=== PATIENT | female | born 1950 | race Caucasian/White ===

== ENCOUNTER → 2017-12-11 12:23 | Outpatient (CLI) | payer MEDICARE, OTHER ==
[2011-12-25 17:15] VITALS: BMI 36.5
== END | disposition home or self-care (01) ==
LOC: D.MRI 12:23
DX: M25.562 Pain in left knee (principal)

== ENCOUNTER 2018-01-04 06:32 | Day surgery (SDC) | payer MEDICARE, OTHER ==
[~2018-01-04] VITALS: Ht 170.2 cm; Wt 92.1 kg
--- NOTE | ~2018-01-04 | OP ---
PATIENT NAME: GRIS HASTINGS MEDICAL RECORD: [id number] :50 LOCATION:[facility] ADMISSION DATE: SURGEON: TONI MORALES MD DATE OF OPERATION: 01/04/2018 PREOPERATIVE DIAGNOSES: 1. Medial meniscus tear of the right knee. 1. Lateral meniscus tear of the right knee. PROCEDURES: 1. Arthroscopic partial medial meniscectomy. 2. Arthroscopic partial lateral meniscectomy. SURGEON: Toni Morales MD ANESTHESIA: General. INTRAOPERATIVE COMPLICATIONS: None. SUMMARY OF PATHOLOGIC FINDINGS: Consistent with the preoperative MRI, the patient had tears of both medial and lateral meniscus that required debridement. OPERATIVE SUMMARY IN DETAIL: After obtaining the appropriate preoperative orthopedic surgery consent as well as anesthetic consultation, evaluation, and clearance, the patient was brought to the operating room and placed on the operating table in the supine position. After general laryngeal mask was administered, tourniquet was placed about the proximal aspect of the right lower extremity. The right lower extremity was then prepped and draped in routine sterile fashion. The leg was elevated, exsanguinated, and the tourniquet was inflated to 350 mmHg. Routine inferolateral portal was established followed by superomedial portal and inferomedial portal. Diagnostic arthroscopy did reveal the patient to have both a complex tear of the posterior horn of medial meniscus as well as a complex tear of the posterior horn of lateral meniscus. Attention was first turned to the medial meniscus. Combination of 3.5 full radius resector in conjunction with a meniscotome was utilized to debride the medial meniscus back to stable meniscal elements. The patient did have mild chondromalacia of the medial compartment. One area of chondral flap was taken down. It was not full thickness, measured less than 2 mm. Having completed this, the knee was placed in a [id number]-bdjj position, and in the [id number]-ek-[id number] position, the lateral meniscus tear was quite a bit more significant in the medial meniscus tear as it went straight back to the popliteal fossa. Both horns on medial and lateral aspect of popliteal fossa were debrided back with minimal residual on the posteromedial aspect of the lateral meniscus and with good residual on the posterolateral aspect lateral to the popliteal hiatus. Having completed the entire subtotal meniscectomy on the lateral side, the knee was insufflated with 80 cc of Depo-Medrol with 30 cc of 0.25% Marcaine plain. Arthroscopy portals were closed in routine interrupted fashion. Sterile dressings were applied. Tourniquet was deflated. The patient was awakened and taken to the recovery room in stable condition. All final needle and sponge counts were correct. TRANSINT:[id number] Voice Confirmation ID: [id number] DOCUMENT ID: [id number] OPERATIVE REPORT [id number] GRIS HASTINGS MD, TONI FLYNN at 1312 CC: [id number] DICTATION DATE: 01/08/18 1402 CORRECTIONS SPECIALIST: 01/08/18 1543 [facility] [place] 01/04/18 [id number] [place] [address]
[~2018-01-04 06:32] MED LIST: PRINZIDE 20/12.1 TA1 PO
[2018-01-04 07:00] LABS: HEMATOCRIT 35.8 % (36.0-48.0); HEMOGLOBIN 11.6 g/dL (12-16); MCH 28.1 pg (26.0-34.0); MCHC 32.4 g/dL (31.0-37.0); MCV 86.7 fL (80.0-100.0); MEAN PLATELET VOLUME 9.8 fL (7.4-10.4); RBC 4.13 10x6/uL (4.00-5.40); RDW 13.3 % (11.5-14.5); WBC 5.1 10x3/uL (4.8-10.8)
[2018-01-04 07:20] LABS: ANION GAP 12.6 mmol/L (8-16); CARBON DIOXIDE 28.6 mmol/L (21.0-32.0); CREATININE - SERUM 0.9 mg/dL (0.6-1.3); POTASSIUM - SERUM 4.2 mmol/L (3.5-5.1)
[2018-01-04 07:34] VITALS: BP 156/66; Ht 170.2 cm; Wt 92.1 kg
== END 2018-01-04 12:05 | disposition home or self-care (01) ==
LOC: D.OPS 06:32 → D.PAN 14:00 → D.OPS 15:45
PROVIDERS: Anesthesiology
DX: S83.241A Other tear of medial meniscus, current injury, right knee, initial encounter (principal); S83.281A Other tear of lateral meniscus, current injury, right knee, initial encounter; Z01.812 Encounter for preprocedural laboratory examination

== ENCOUNTER → 2018-02-03 17:32 | Outpatient (CLI) | payer MEDICARE, OTHER ==
[2018-01-04 07:34] VITALS: BMI 31.8
== END | disposition home or self-care (01) ==
LOC: D.LABREF 17:32
DX: M19.011 Primary osteoarthritis, right shoulder (principal); Z11.8 Encounter for screening for other infectious and parasitic diseases

== ENCOUNTER 2018-03-11 05:00 | Inpatient (IN) | payer MEDICARE, OTHER ==
[2018-03-09 08:45] LABS: ANION GAP 13.4 mmol/L (8-16); CARBON DIOXIDE 28.2 mmol/L (21.0-32.0); POTASSIUM - SERUM 3.6 mmol/L (3.5-5.1)
[2018-03-09 08:47] LABS: APTT 26.9 SECONDS (22.8-39.4); BASOPHILS 0.3 % (0-2); EOSINOPHILS 0 % (0-7); HEMATOCRIT 37.7 % (36.0-48.0); HEMOGLOBIN 12.3 g/dL (12-16); IMMATURE GRANULOCYTES 0.2 % (0-5); INR 0.93 (0.85-1.17); MCH 28.5 pg (26.0-34.0); MCHC 32.6 g/dL (31.0-37.0); MCV 87.5 fL (80.0-100.0); MEAN PLATELET VOLUME 10.1 fL (7.4-10.4); MONOCYTES 6.6 % (2-11); NEUTROPHILS 69.9 % (40-80); RBC 4.31 10x6/uL (4.00-5.40); RDW 13.3 % (11.5-14.5); WBC 6.3 10x3/uL (4.8-10.8)
[2018-03-09 08:50] LABS: PLATELET COUNT 188 10x3/uL (130-400)
[2018-03-09 09:17] LABS: APPEARANCE CLEAR (CLEAR); BACTERIA FEW /hpf (NONE SEEN); BILIRUBIN NEGATIVE (NEGATIVE); COLOR YELLOW (YELLOW); EPITHELIAL CELLS RARE /hpf (0-5); GLUCOSE NEGATIVE (NEGATIVE); HYALINE CAST RARE /lpf (NONE SEEN); KETONE NEGATIVE (NEGATIVE); MUCUS <1+ /lpf (NONE SEEN); NITRITE NEGATIVE (NEGATIVE); PROTEIN NEGATIVE (NEGATIVE); UROBILINOGEN NORMAL (NORMAL); WHITE CELLS - URINE RARE /hpf (0-5)
[~2018-03-11] VITALS: Ht 152.4 cm; Wt 75.0 kg
[~2018-03-11 05:00] MED LIST changes: +NEXIUM20 MG PO; +SUPER B COMPLE150 MG PO
[2018-03-11 05:58] VITALS: BP 126/51; BMI 32.2
--- NOTE | 2018-03-11 11:17 | NUR ---
1105 PT AWAKE AND FEEDING SELF FULL LIQUID DIET 1115 BNC 2L TURNED OFF.
[2018-03-11 12:30] VITALS: BP 124/82
--- NOTE | 2018-03-11 13:09 | NUR ---
1235 PT HAS BEEN VERY SLEEPY THE ENTIRE TIME SINCE ARRIVING FROM PACU. SHE WOKE UP TO EAT FULL LQ DIET THEN WENT BACK TO SLEEP. EACH CHECK HER SBP HAS DROPPED. THIS CHECK THE SBP WAS IN THE 80'S. TURNED LR UP TO BOLUS. WATCHED PRESSURE FOR ABOUT 5 MINUTES AND IT CONTINUED TO RUN IN THE 80'S. PT WAKES UP EASILY AND IS ORIENTED X3. HAD PT MOVE ABOUT IN THE STRETCHER. SHE STATED SHE FEELS SEDATED FROM ALL THE MEDICINE SHE GOT PRE-OP. 1240 DR. MORALES HERE AND AWARE OF LOW SBP. DR MORALES REQUESTED A CONSULT FOR DR MATA. 1250 NO GREAT INCREASE IN SBP. CALLED DR. DAVIS WHO IS AT BEDSIDE NOW. B/P CURRENTLY 97/48 HE THOUGHT THAT WAS OK AND HE SAID SHE WAS STABLE TO TRANSFER TO THE FLOOR. [address] MATA. HE IS AWARE OF EVENTS. NO ORDERS RECEIVED. HE IS AWARE THAT PT IS TRANSFERRING TO 2226. 1300 PT WAKES UP EASILY TO VERBAL STIMULI. DSG IS DRY AND INTACT. NO SWELLING AT SITE. ICE PACK HAS BEEN ON SINCE ARRIVAL TO OPS. TAKING ICE PACK OFF FOR 2 HOURS ORDERED. PT REMAINS ON 2L BNC. RESPIRATIONS UNLABORED AND EVEN.
--- NOTE | 2018-03-11 13:30 | NUR ---
1325 VS STABLE. ROOM 2226 READY. REPORT TO BE GIVEN AT BEDSIDE ONCE TRANSFERRED TO ROOM.
[2018-03-11 13:53] VITALS: BP 87/45; Ht 152.4 cm; Wt 75.0 kg
[2018-03-11 16:15] VITALS: BP 87/49
--- NOTE | 2018-03-11 16:31 | NUR ---
PT ARRIVED TO THE ROOM VIA STRETCHER. ALERT AND ORIENTED X4 BUT FALLS ASLEEP EASILY. LEFT HAND IV PATENT AND INFUSING LACTATED RINGERS. VITALS STABLE WITH NO COMPLAINTS OF PAIN AT THIS TIME. BED IN LOW POSITION CALL LIGHT IN REACH PATIENT DENIES ANY NEEDS AT THIS TIME
[2018-03-11 17:57] LABS: ANION GAP 16.3 mmol/L (8-16); CALCIUM 8.1 mg/dL (8.5-10.1); CARBON DIOXIDE 25.2 mmol/L (21.0-32.0); CREATININE - SERUM 1.4 mg/dL (0.6-1.3); POTASSIUM - SERUM 4.5 mmol/L (3.5-5.1)
--- NOTE | 2018-03-11 18:32 | NUR ---
PT RESTING IN BED EYES OPEN. NO C/O PAIN. NO S/S OF ACUTE DISTRESS NOTED. PT DENIES ANYTHING FURTHER AT THIS TIME. CALL LIGHT IN REACH. WILL CONTINUE TO MONITOR.
[2018-03-11 20:20] VITALS: BP 74/39
--- NOTE | 2018-03-11 21:00 | NUR ---
SUPINE, PT ALERT AND ORIENTED X 4. DENIES PAIN/DIZZINESS. REPORTS BEING LETHARGIC ALL DAY. PT STATES SHE HAS NOT VOIDED TODAY. ENCOURAGED TO INCREASE ORAL FLUID INTAKE. PT'S BP IS 74/37. CALLED DR MATA, WHO ORDERED A 500CC BOLUS OF SALINE. WILL MONITOR CLOSELY. PT IS ABLE TO MOVE/ FEEL ALL EXTREMITIES. RIGHT ARM IS SECURED IN SLING, DRESSING CLEAN/DRY INTACT.
[2018-03-11 23:37] VITALS: BP 76/32
[2018-03-12 01:20] VITALS: BP 87/41
--- NOTE | 2018-03-12 02:20 | NUR ---
ASSESSED, PT WAS ASSISTED UP TO THE BATHROOM TO VOID AND CONTINUES TO WEAR HER LING TO THE RIGHT ARM. NO DISTRESS NOTED AND RESPIRATIONS ARE EASY.
--- NOTE | 2018-03-12 03:04 | NUR ---
OOB, IN BATHROOM. RN IN ROOM. PT AMBULATED TO BATHROOM WITH NO ASSISTANCE. CLEAR, YELLOW, VOID, NOTED.
[2018-03-12 05:41] LABS: HEMOGLOBIN 9.7 g/dL (12-16); MCH 28.6 pg (26.0-34.0); MCHC 32.3 g/dL (31.0-37.0); MCV 88.5 fL (80.0-100.0); MEAN PLATELET VOLUME 10.4 fL (7.4-10.4); RBC 3.39 10x6/uL (4.00-5.40); RDW 13.7 % (11.5-14.5)
[2018-03-12 05:53] VITALS: BP 126/54; BP 88/44
[2018-03-12 07:32] VITALS: BP 130/90
[2018-03-12] MEDS ORDERED: NORCO 10-325 TA1 TAB PO (08:59)
--- NOTE | 2018-03-12 09:53 | NUR ---
PT SITTING UP IN BED, COMPLETED LAST ROUND OF IV ABX, PT BP REDONE AND IS 98/55 SPOKE TO LAMONTE ELIZABETH AND ADVISED TO HOLD BP MEDS UNTIL SEEN BY PRIMARY AGAIN, PT TO DC HOME TODAY, NO OTHER NEEDS VOICED, CONTINUE WITH PLAN OF CARE
--- NOTE | 2018-03-12 10:38 | MORECARE ---
CASE MANAGEMENT DISCHARGE SUMMARY PATIENT: GRIS HASTINGS UNIT: [id number] ADM DATE: 03/11/18 AGE: 67 : 50 SEX: F ROOM/BED: D.2226 AUTHOR: FARRUKH,DOC PHYSICIAN: REFERRING PHYSICIAN: TONI MORALES MD DATE OF SERVICE: 03/12/18 Discharge Plan Patient Name: GRIS HASTINGS Facility: [facility]:[place] : 1950 Planned Disposition: Home Anticipated Discharge Date: 03/12/18 Discharge Date: Expected LOS: 1 Initial Reviewer: [email or web address] Initial Review Date: 03/12/2018 Generated: 03/12/18 11:38 am Comments DCP- Discharge Planning Updated by [email or web address]: Viktoria Bloom on 03/12/18 9:[address] Patient Name: GRIS HASTINGS Admission Status: Elective Accout number: [id number] Admission Date: 03-11-2018 : 1950 Admission Diagnosis: Attending: TONI MORALES Current LOS: 1 Anticipated DC Date: 03-12-2018 Planned Disposition: Home Primary Insurance: MEDICARE A & B Discharge Planning Comments: CM met with patient to discuss discharge planning, she is alone in the room. She states she lives alone. States she is independent with all ADL's and IADL's. States her friend, Nichole, will drive her home on discharge. States she has another neighbor friend that will check on her 3 times a day. I discussed availability of home health and she declines at this time. I instructed her to call her PCP if she needed home health started once discharged. No needs identified at this time. CM will continue to follow and assist with discharge planning/needs. Furnace Combination Analyst: Viktoria Bloom DCPIA - Discharge Planning Initial Assessment Updated by [email or web address]: Viktoria Bloom on 03/12/18 10:34 am * Is the patient Alert and Oriented? Yes * How many steps to enter\exit or inside your home? 3/0 * PCP Dr. Kevan Cota * Pharmacy [place] * Preadmission Environment Home Alone * ADLs Independent * Equipment Cane Crutch Shower Chair Walker * Other Equipment sling * List name and contact numbers for known caregivers / representatives who currently or will assist patient after discharge: Nichole Ku - [place] - [phone] * Verbal permission to speak to the caregivers and representatives has been obtained from the patient. Yes * Community resources currently utilized None * Additional services required to return to the preadmission environment? No * Can the patient safely return to the preadmission environment? Yes * Has this patient been hospitalized within the prior 30 days at any hospital? No Patient Name: GRIS HASTINGS Page [id number] at 1038 All edits/amendments must be made on the electronic document DICTATION DATE: 03/12/18 1037 CSO: MICHAEL 03/12/18 1037 RPT#: [id number] DC DATE: STATUS: ADM IN [facility] [address] [place] [address] END OF REPORT
--- NOTE | 2018-03-12 12:13 | NUR ---
GENERATOR TECHNICIAN NOTE-AWAITING RIDE FOR DISCHARGE. NO COMPLAINTS AT PRESENT. ARM IN SLING FOR COMFORT. CALL LIGHT IN REACH
--- NOTE | 2018-03-12 13:57 | NUR ---
PT DISCHARGED HOME VIA WHEELCHAIR WITH FAMILY MEMBER. NO C/O PAIN. NO S/S OF ACUTE DISTRESS NOTED. PT DENIES ANYTHING FURTHER.
--- NOTE | 2018-03-12 14:28 | OP ---
PATIENT NAME: GRIS HASTINGS MEDICAL RECORD: [id number] :50 LOCATION:D.MS [facility]2226 ADMISSION DATE:03/11/18 SURGEON: TONI MORALES MD DATE OF OPERATION: 03/11/2018 PREOPERATIVE DIAGNOSIS: Rotator cuff arthropathy of the right shoulder. POSTOPERATIVE DIAGNOSIS: Rotator cuff arthropathy of the right shoulder. PROCEDURE: Reverse total shoulder arthroplasty. SURGEON: Toni Morales MD SOLE ROUNDING MACHINE OPERATOR: KP Montilla ANESTHESIA: General. INTRAOPERATIVE COMPLICATIONS: None. INTRAOPERATIVE FINDINGS: The patient did have a rotator cuff arthropathy consistent with preoperative radiographs. Furthermore, the patient had glenohumeral arthrosis, previous rotator cuff anchors were removed. IMPLANTS USED: Arthrex Univers logical glenoid system with the Arthrex Univers reversed stem and cup, the 36 x 6 x 33 with a +2 suture cut, right, stem size 8, glenosphere size 33+4. OPERATIVE SUMMARY IN DETAIL: After obtaining the appropriate preoperative orthopedic surgery consent as well as anesthetic consultation, evaluation, and clearance, the patient was brought to the operating room and placed on the operating table in supine position. After general laryngeal mask airway was administered, the patient was placed in beach chair position. All pressure points were well padded. She was held firmly to the operating table using the vacuum pack suction system. Right upper extremity and shoulder were prepped and draped in routine sterile fashion. The arm was held in Trimano arm holding device. Deltopectoral incision was taken down. The cephalic vein was identified and protected throughout the case. Clavipectoral fascia was incised. Deltoid was retracted. Using the brown retractor, conjoined tendon was gently retracted using a PCL retractor. The subscap, which was retained, was taken down. Biceps tendon was locked since torn and not tenodesed as it was already retracted. The subscapularis was then reflected. The humeral head was then dislocated into the operative site. Proximal humeral cut was made using the humeral cutting guide for the Univers II system. Suture anchors were then removed. Serial and sequential reaming and broaching were then followed by placing of the cut protection guide. While the broach was left in place, the glenoid was then approached. Serial and sequential labrectomy was then followed by placement of the low center pin for peripheral reaming. This was followed by preparation of the glenoid for placement of the baseplate. Baseplate was put into place with a 25-mm compression screw with excellent capture. The ClickGanic gun screw targeting device was then utilized for the 4 peripheral screws. Four peripheral screws were put into place again with excellent compression. Having completed this, the 33-mm + 4 baseplate was tamped into place on the Caro taper and then locked with the central screw. Attention was then returned to the proximal humerus. The proximal reaming was then followed by trial that corresponding to the above size. The final implant was then articulated on the OPERATIVE REPORT [id number] GRIS HASTINGS baseplate. It was tamped into place for good press fit. Trials were then again undertaken. It was felt that the 6 polyethylene captured was the most appropriate. This was reduced, put into place, taken through range of motion and found to be stable in all planes. Having completed this, the incision was closed that is a transosseous reapproximation of the subscapularis to the lesser tuberosity using #2 Ethibond. The wound was then further irrigated and closed. This was all carried out by KP Montilla. Final closure was achieved with #1 Vicryl, 2-0 Vicryl and skin renzo. Sterile dressings were applied. The patient was awakened, taken to recovery room in stable condition. All final needle and sponge counts were correct. TRANSINT:[id number] Voice Confirmation ID: [id number] DOCUMENT ID: [id number] TONI MORALES MD at 1428 CC: [id number] DICTATION DATE: 03/12/18 1142 QA AUTOMATION ENGINEER: 03/12/18 1315 DIS IN 03/12/18 [facility] [address] [place] [address]
--- NOTE | 2018-03-15 16:46 | MORECARE ---
CASE MANAGEMENT DISCHARGE SUMMARY PATIENT: GRIS HASTINGS UNIT: [id number] ADM DATE: 03/11/18 AGE: 67 : 50 SEX: F ROOM/BED: D.2226 AUTHOR: FARRUKH,DOC PHYSICIAN: REFERRING PHYSICIAN: TONI MORALES MD DATE OF SERVICE: 03/15/18 Discharge Plan Patient Name: GRIS HASTINGS Facility: [facility]:[place] : 1950 Planned Disposition: Home Anticipated Discharge Date: 03/12/18 Discharge Date: 03/12/2018 Expected LOS: 1 Initial Reviewer: [email or web address] Initial Review Date: 03/12/2018 Generated: 03/15/18 5:46 pm Comments DCP- Discharge Planning Updated by [email or web address]: Viktoria Bloom on 03/12/18 9:[address] Patient Name: GRIS HASTINGS Admission Status: Elective Accout number: [id number] Admission Date: 03-11-2018 : 1950 Admission Diagnosis: Attending: TONI MORALES Current LOS: 1 Anticipated DC Date: 03-12-2018 Planned Disposition: Home Primary Insurance: MEDICARE A & B Discharge Planning Comments: CM met with patient to discuss discharge planning, she is alone in the room. She states she lives alone. States she is independent with all ADL's and IADL's. States her friend, Nichole, will drive her home on discharge. States she has another neighbor friend that will check on her 3 times a day. I discussed availability of home health and she declines at this time. I instructed her to call her PCP if she needed home health started once discharged. No needs identified at this time. CM will continue to follow and assist with discharge planning/needs. Stores Clerk: Viktoria Bloom DCPIA - Discharge Planning Initial Assessment Updated by [email or web address]: Viktoria lBoom on 03/12/18 10:34 am * Is the patient Alert and Oriented? Yes * How many steps to enter\exit or inside your home? 3/0 * PCP Dr. Kevan Cota * Pharmacy [facility] * Preadmission Environment Home Alone * ADLs Independent * Equipment Cane Crutch Shower Chair Walker * Other Equipment sling * List name and contact numbers for known caregivers / representatives who currently or will assist patient after discharge: Nichole Ku - [place] - [phone] * Verbal permission to speak to the caregivers and representatives has been obtained from the patient. Yes * Community resources currently utilized None * Additional services required to return to the preadmission environment? No * Can the patient safely return to the preadmission environment? Yes * Has this patient been hospitalized within the prior 30 days at any hospital? No Last DP export: 03/12/18 9:38 a Patient Name: GRIS HASTINGS Page [phone] at 1646 All edits/amendments must be made on the electronic document DICTATION DATE: 03/15/181645 BOTTOM CAGER: MICHAEL 03/15/181645 RPT#: [id number] DC DATE:03/12/18 STATUS: DIS IN [facility] [address] [place] [address] END OF REPORT
== END 2018-03-12 13:59 | disposition home or self-care (01) | DRG 483 ==
LOC: D.SDCHOLD 05:00 → D.MS 13:34
PROVIDERS: Internal Medicine Nephrology; ADMIT Orthopaedic Surgery
PROC: 0RRJ00Z Replacement of Right Shoulder Joint with Reverse Ball and Socket Synthetic Substitute, Open Approach (ICD-10-PCS; principal; 2018-03-11 07:30)
DX: M12.811 Other specific arthropathies, not elsewhere classified, right shoulder (principal); D62 Acute posthemorrhagic anemia; N17.9 Acute kidney failure, unspecified; I95.81 Postprocedural hypotension

== ENCOUNTER → 2018-11-02 18:29 | Outpatient (CLI) | payer MEDICARE, OTHER ==
[~2018-11-02 18:29] MED LIST changes: +NORCO 10-325 TA1 TAB PO
== END | disposition home or self-care (01) ==
LOC: D.LABREF 18:29
PROVIDERS: ATTEND Orthopaedic Surgery
DX: M17.11 Unilateral primary osteoarthritis, right knee (principal)

== ENCOUNTER 2018-11-04 13:26 | Inpatient (IN) | payer MEDICARE, OTHER ==
[~2018-11-04] VITALS: Ht 170.2 cm; Wt 100.2 kg
[2018-11-17 09:27] LABS: BASOPHILS 0.2 % (0-2); EOSINOPHILS 0.2 % (0-7); HEMATOCRIT 33.4 % (36.0-48.0); HEMOGLOBIN 10.9 g/dL (12-16); IMMATURE GRANULOCYTES 0.2 % (0-5); LYMPHOCYTES 25.8 % (15-50); MCH 27.9 pg (26.0-34.0); MCHC 32.6 g/dL (31.0-37.0); MCV 85.6 fL (80.0-100.0); MEAN PLATELET VOLUME 10.3 fL (7.4-10.4); MONOCYTES 6.5 % (2-11); NEUTROPHILS 67.1 % (40-80); PLATELET COUNT 170 10x3/uL (130-400); RDW 13.9 % (11.5-14.5); WBC 5.6 10x3/uL (4.8-10.8)
[2018-11-17 09:37] LABS: APTT 27.5 SECONDS (22.8-39.4); INR 0.93 (0.85-1.17)
[2018-11-17 09:47] LABS: ANION GAP 9.4 mmol/L (8-16); CALCIUM 8.6 mg/dL (8.5-10.1); CARBON DIOXIDE 31.1 mmol/L (21.0-32.0); CREATININE - SERUM 1.1 mg/dL (0.6-1.3); POTASSIUM - SERUM 3.5 mmol/L (3.5-5.1)
[2018-11-17 11:58] LABS: APPEARANCE CLEAR (CLEAR); BILIRUBIN NEGATIVE (NEGATIVE); COLOR YELLOW (YELLOW); GLUCOSE NEGATIVE (NEGATIVE); KETONE NEGATIVE (NEGATIVE); NITRITE NEGATIVE (NEGATIVE); PROTEIN NEGATIVE (NEGATIVE); SPECIFIC GRAVITY 1.015 (1.005-1.020); UROBILINOGEN NORMAL (NORMAL)
[2018-11-22 07:21] VITALS: BP 119/65; BMI 31.8
--- NOTE | 2018-11-22 09:26 | NUR ---
PT ROUNDED ON AT THIS TIME, PT UPDATED ON PLAN OF CARE AND VERBALIZES UNDERSTANING. PT STATES NO OTHER NEEDS AT THIS TIME, NAD NOTED.
--- NOTE | 2018-11-22 12:09 | NUR ---
EDDIEMA BLADE USED ELECTRODE # [id number] EX DATE
[2018-11-22 13:08] VITALS: BP 106/62
--- NOTE | 2018-11-22 13:10 | NUR ---
REC'D TO ROOM 2210 AWAKE AND ALERT. RESP EVEN AND UNLABORED WITH NO DISTRESS NOTED. DRESSING CLEAN DRY AND INTACT. RESTING WELL AT THIS TIME WITH EYES CLOSED EASILY TO AROUSED WHEN NAME IS CALLED. C/L IN REACH AT BEDSIDE.
[2018-11-22 16:42] VITALS: BP 104/57
--- NOTE | 2018-11-22 16:59 | OP ---
PATIENT NAME: GRIS HASTINGS MEDICAL RECORD: [id number] :50 LOCATION:D.MS Maciel2210 ADMISSION DATE:11/22/18 SURGEON: TONI MORALES MD DATE OF OPERATION: 11/22/2018 PREOPERATIVE DIAGNOSIS: Degenerative arthritis of the right knee. POSTOPERATIVE DIAGNOSIS: Degenerative arthritis of the right knee. PROCEDURE: Right total knee arthroplasty -- press fit. SURGEON: Toni Morales MD ANESTHESIA: Andrez Longoria, [place] INTRAOPERATIVE COMPLICATIONS: None. SUMMARY OF PATHOLOGIC FINDINGS: The patient had extreme valgus arthritis, right knee consistent with preoperative radiographs. IMPLANTS USED: Brad Triathlon total knee arthroplasty with press fit size 6 distal femur, press fit size 6 tibial component, size 13 X3 tibial bearing baseplate, and a size 33 x 9 patellar press-fit. ESTIMATED BLOOD LOSS: 200 cc. OPERATIVE SUMMARY IN DETAIL: After obtaining the appropriate preoperative orthopedic surgery consent as well as anesthetic consultation, evaluation and clearance, the patient was brought to the operating room and placed on the operating table in supine position. After general laryngeal mask airway was administered, tourniquet was placed on the proximal aspect of the right lower extremity. The right lower extremity was then prepped and draped in routine sterile fashion. The leg was elevated and exsanguinated, tourniquet was inflated to 350 mmHg. Routine midline incision was taken down for paramedian arthrotomy. Paramedian arthrotomy was performed. Patella was everted and the soft tissue excision was done in the usual fashion. An intramedullary guide hole was created for intramedullary guided distal femoral cuts. Distal femoral cut was made followed by complete exposure of the proximal tibia with further soft tissue removed. Intramedullary guide hole was created likewise in the tibia and the proximal tibia was cut in keeping with the patient's valgus arthritis. A saw was just underneath the sclerotic bone on the lateral side. At this point, the gap tissue technologist was brought in, a size 11 was the most appropriate with the knee in flexion thusly needing a size 19 cut using the gap balancing system from [employer]. Distal femoral gap tissue technologist was utilized. The appropriate guide holes were made and followed by cuts for a size 6 distal femur. Trials were put in corresponding to the above implants. The patient had excellent results in both flexion and extension. Final distal femoral and proximal tibial preparations were made. At this point, attention was turned to the patella, which was extremely sclerotic and then care was made to cut and avoid over cutting the patella. All of this was substantially thin to begin with. At this point, a size 33 x 9 press fit patella was prepared for. Copious irrigation was then followed by press fitting the components in place, range of motion taken showed the patient did have lateral subluxation of patella consistent with a valgus. A lateral release was performed. At this point, further irrigation was then followed by placement of a gram of vancomycin and a OPERATIVE REPORT [id number] GRIS HASTINGS gram of tobramycin and then the paramedian arthrotomy closure was achieved by Andrez Longoria APN with #2 Ethibond followed by #1 Vicryl, 2-0 Vicryl, and skin renzo. Sterile dressings were applied. The patient was awakened, taken to the recovery room in stable condition. All final needle and sponge counts were correct. TRANSINT:[id number] Voice Confirmation ID: [id number] DOCUMENT ID: [id number] ANDREW ROMERO, TONI FLYNN at 1659 CC: [id number] DICTATION DATE: 11/22/18 1208 TRANSPORTATION MAINTENANCE OPERATOR: 11/22/18 1502 ADM IN [id number] [place] [address]
[2018-11-22 20:00] VITALS: BP 94/60
--- NOTE | 2018-11-22 20:25 | NUR ---
LYING IN BED. ORIENTED X4. RESP EVEN AND NONLABORED. LINDA WRAP NOTED TO RT KNEE WITH ICE PACK IN USE. CPM IN USE. STIVEN STEEL BILAT. SCD TO LLE. NS @ 10 MLHR INFUSINGIN LT HAND WITHOUT DIFF. PEDAL PULSES WNL. DENIES PAIN. SR ELEVATED X2. CL IN REACH.
[2018-11-23] VITALS (52 sets, daily range): BP systolic 61–177; BP diastolic 38–88; BMI 31.7
--- NOTE | 2018-11-23 02:48 | NUR ---
HAS RESTED WELL TONIGHT. DENIES PAIN. SR ELEVATED X2. CL IN REACH.
--- NOTE | 2018-11-23 06:03 | NUR ---
PLACED ON CPM. MEDICATED WITH NORCO FOR C/O PAIN IN RT KNEE RATING 4. CL IN REACH.
[2018-11-23 07:35] LABS: HEMATOCRIT 30.8 % (36.0-48.0); HEMOGLOBIN 10.3 g/dL (12-16); MCH 29.9 pg (26.0-34.0); MCHC 33.4 g/dL (31.0-37.0); MCV 89.5 fL (80.0-100.0); RBC 3.44 10x6/uL (4.00-5.40); RDW 13.4 % (11.5-14.5); WBC 5.6 10x3/uL (4.8-10.8)
--- NOTE | 2018-11-23 07:55 | NUR ---
PT RESTING IN BED WITH CPM IN PLACE TO RIGHT LOWER EXTREMITY. DRESSING TO LEG C/D/I. RESP EVEN AND UNLABORED. SALINE LOC TO LEFT HAND, SITE WITHOUT REDNESS OR EDEMA. PT DENIES PAIN AT THIS TIME. DENIES FURTHER NEEDS. ENCOURAGED TO CALL WITH NEEDS. CL WITHIN REACH. CONTINUE POC
--- NOTE | 2018-11-23 14:00 | NUR ---
ENTERED PT ROOM GREETING PT. PT DID NOT RESPOND. CALLED PT NAME AGAIN, NO RESPONSE. SHOOK PT AND CALLED NAME, NO RESPONSE. STERNAL RUB PT OPENS EYES RESPONDING SLOWLY. PT BP 102/64 MANUAL, HR 62. RAPID RESPONSE CALLED AT THIS TIME DUE TO CHANGE IN LOC. O2 SAT 95% ON ROOM AIR. NS @ 100ML/HR INFUSING TO LEFT HAND. PT AROUSED AGAIN TO VERBAL STIMULI. PT IS ALERT AND ORIENTED. DENIES PAIN AT THIS TIME. RAPID RESPONSE TEAM ARRIVED
--- NOTE | 2018-11-23 15:20 | NUR ---
PT RECEIVED FROM FLOOR. WAS A RAPID RESPONSE D/T LOW BP. UPON ARRIVING TO UNIT, PT IS AWAKE AND ORIENTED. ABLE TO CARRY CONVERSATION. HAD RIGHT KNEE DONE YESTERDAY 11/22/[address] MORALES. CONSULT FOR DR RACHEL.
--- NOTE | 2018-11-23 15:45 | NUR ---
CALLED DR RACHEL ABOUT CONSULT AND TO SEE IF WE COULD GET MEDICATION TO HELP BLOOD PRESSURE. ORDER FOR LEVOPHED.
[2018-11-23 16:10] LABS: BASOPHILS 0.2 % (0-2); EOSINOPHILS 0.2 % (0-7); HEMATOCRIT 27.3 % (36.0-48.0); HEMOGLOBIN 8.7 g/dL (12-16); IMMATURE GRANULOCYTES 0.2 % (0-5); LYMPHOCYTES 5.1 % (15-50); MCH 28.2 pg (26.0-34.0); MCHC 31.9 g/dL (31.0-37.0); MCV 88.3 fL (80.0-100.0); MEAN PLATELET VOLUME 9.9 fL (7.4-10.4); MONOCYTES 5.6 % (2-11); NEUTROPHILS 88.7 % (40-80); PLATELET COUNT 138 10x3/uL (130-400); RBC 3.09 10x6/uL (4.00-5.40); RDW 14.2 % (11.5-14.5); WBC 6.7 10x3/uL (4.8-10.8)
[2018-11-23 16:28] LABS: ALBUMIN 2.6 g/dL (3.4-5.0); ALKALINE PHOSPHATASE 75 U/L (46-116); ALT (SGPT) 62 U/L (10-68); CALC OSMOLALITY 286 mosm/kg (275-300); CALCIUM 7.6 mg/dL (8.5-10.1); CARBON DIOXIDE 24.6 mmol/L (21.0-32.0); CHLORIDE - SERUM 102 mmol/L (98-107); CREATININE - SERUM 3.5 mg/dL (0.6-1.3); GLUCOSE 122 mg/dL (74-106); POTASSIUM - SERUM 3.9 mmol/L (3.5-5.1); PROTEIN - SERUM 5.5 g/dL (6.4-8.2); SODIUM 137 mmol/L (136-145); UREA NITROGEN 45 mg/dL (7-18); eGFR NON AFRICAN AMERICAN 14 mL/min (90-120)
--- NOTE | 2018-11-23 16:32 | NUR ---
TITRATING LEVOPHED PER PARAMETERS AND BP/MAP. CHARTED IN IV FLOWSHEET.
[2018-11-23 16:39] LABS: CKMB 0.8 U/L (0.0-3.6); CREATINE KINASE 123 UL (21-215); PRO BNP 1271 pg/mL (0-125); TROPONIN-I < 0.017 ng/mL (0.000-0.060)
--- NOTE | 2018-11-23 17:44 | NUR ---
HAVING ECHO DONE AT THIS TIME.
--- NOTE | 2018-11-23 18:27 | NUR ---
BLOOD INITIATED. RIGHT AC. PT AOX4. SITTING UP IN BED EATING DINNER.
--- NOTE | 2018-11-23 19:00 | NUR ---
PT A/OX4, RIGHT PIV INTACT WITH BLOOD TRANSFUSING, LEFT PIV INTACT WITH NS AND LEVOPHED INFUSING, RIGHT KNEE DRSG INTACT, CPM MACHINE TO RIGHT LEG, VITALS STABLE, NO C/O
--- NOTE | 2018-11-23 21:00 | NUR ---
PT REMAINS AWAKE, CPM MACHINE STILL IN USE, VITALS STABLE
--- NOTE | 2018-11-23 23:00 | NUR ---
PT RESTING QUIETLY, NO DISTRESS NOTED, VITALS STABLE
[2018-11-24] VITALS (22 sets, daily range): BP systolic 85–198; BP diastolic 42–70; Ht 170.2 cm; Wt 100.2 kg
--- NOTE | 2018-11-24 01:30 | NUR ---
LEVOPHED TURNED OFF, B/P STABLE, USES BEDPAN WITH ASSIST FROM STAFF
--- NOTE | 2018-11-24 03:00 | NUR ---
PT SLEEPING WITH NO DISTRESS, WILL CONT TO MONITOR
[2018-11-24 04:13] LABS: BASOPHILS 0.2 % (0-2); EOSINOPHILS 0.2 % (0-7); HEMATOCRIT 29.5 % (36.0-48.0); HEMOGLOBIN 9.4 g/dL (12-16); IMMATURE GRANULOCYTES 0.2 % (0-5); LYMPHOCYTES 6.9 % (15-50); MCH 27.6 pg (26.0-34.0); MCHC 31.9 g/dL (31.0-37.0); MCV 86.8 fL (80.0-100.0); MEAN PLATELET VOLUME 11.1 fL (7.4-10.4); MONOCYTES 4.6 % (2-11); NEUTROPHILS 87.9 % (40-80); RDW 14.6 % (11.5-14.5); WBC 5.9 10x3/uL (4.8-10.8)
[2018-11-24 04:14] LABS: PLATELET COUNT 97 10x3/uL (130-400)
[2018-11-24 04:32] LABS: ALBUMIN 2.5 g/dL (3.4-5.0); ANION GAP 13.9 mmol/L (8-16); BILIRUBIN - TOTAL 0.7 mg/dL (0.2-1.3); CALCIUM 7.5 mg/dL (8.5-10.1); CARBON DIOXIDE 26.2 mmol/L (21.0-32.0); CREATININE - SERUM 3.4 mg/dL (0.6-1.3); POTASSIUM - SERUM 4.1 mmol/L (3.5-5.1); PROTEIN - SERUM 5.1 g/dL (6.4-8.2)
[2018-11-24 04:36] LABS: PLATELET ESTIMATE DECREASED
--- NOTE | 2018-11-24 05:30 | NUR ---
PT UP TO BSC WITH ASSIST, TOLERATED WELL WITH NO C/O
--- NOTE | 2018-11-24 08:12 | NUR ---
PATIENT ON CPM. WILL REMOVE AT 1000. BREAKFAST TRAY IN ROOM. CL IN REACH. REQUESTED AND RECEIVED HER POLIGRIP FOR HER DENTURES. NO FURTHER NEEDS AT THIS TIME. TIM
[2018-11-24 08:46] LABS: APPEARANCE CLEAR (CLEAR); BILIRUBIN NEGATIVE (NEGATIVE); COLOR YELLOW (YELLOW); GLUCOSE NEGATIVE (NEGATIVE); KETONE NEGATIVE (NEGATIVE); NITRITE NEGATIVE (NEGATIVE); PROTEIN NEGATIVE (NEGATIVE); SPECIFIC GRAVITY 1.015 (1.005-1.020); UROBILINOGEN NORMAL (NORMAL)
--- NOTE | 2018-11-24 10:27 | NUR ---
PATIENT TOLD SHE WOULD BE NPO UNTIL THE ABD US AROUND 5:00 PM. HOWEVER, SHE COULD HAVE SIPS WITH MEDS. ALSO, PUT THIS ON THE PATIENTS BOARD IN HER ROOM. PATIENT CO ANTONIOFrantz AUGUSTINE. SHE HAS REPOSITIONED HERSELF TO HER RIGHT SIDE WITH A PILLOW BEHIND HER BUTTOCK. ANOTHER PILLOW IN BETWEEN HER LEGS. CL IN REACH. NO FURTHER NEEDS AT THIS TIME.
[2018-11-24 10:36] LABS: CREATININE - URINE 139.9 mg/dL (30-125)
[2018-11-24 10:38] LABS: PRO/CRE RATIO URINE 2.2 mg/g; PROTEIN - URINE 301.2 mg/dL (0.0-11.9)
--- NOTE | 2018-11-24 13:38 | NUR ---
FAMILY IN ROOM. NO NEEDS AT THIS TIME. CL IN REACH. XRAY WILL BE COMING TO GET PATIENT. WCTM
--- NOTE | 2018-11-24 14:51 | NUR ---
PT RECD FROM ICU VIA BED. PT IS AAO X 4. DRESSING TO RIGHT KNEE IS CDI. PIV TO LEFT HAND IS INFUSING WITHOUT DIFFICULTY. WITHOUT REDNESS/TENDERNESS TO IV INSERTION SITE. SCD TO LEFT LEG. CPM IN ROOM. PT DENIES PRESENCE OF PAIN/N/V AT THIS TIME. EVELINA ALARM IS ON AND WORKING. FAMILY AT BEDSIDE. BED IS IN THE LOWEST POSITION. CALL LIGHT AND BEDSIDE TABLE ARE WITHIN REACH. SIDE RAILS X 2. WILL CONT TO MONITOR. PT DENIES FURTHER NEEDS.
--- NOTE | 2018-11-24 18:41 | MORECARE ---
CASE MANAGEMENT DISCHARGE SUMMARY PATIENT: GRIS HASTINGS UNIT: [id number] ADM DATE: 11/22/18 AGE: 68 : 50 SEX: F ROOM/BED: D.2231 AUTHOR: SINDI CHADWICK PHYSICIAN: REFERRING PHYSICIAN: TONI MORALES MD DATE OF SERVICE: 11/24/18 Discharge Plan Patient Name: GIRS HASTINGS Facility: [facility]:[place] : 1950 Planned Disposition: Home Anticipated Discharge Date: Discharge Date: Expected LOS: Initial Reviewer: [email or web address] Initial Review Date: 11/24/2018 Generated: 11/24/18 7:41 pm Patient Name: GRIS HASTINGS Page 91821 at 1841 All edits/amendments must be made on the electronic document DICTATION DATE: 11/24/181839 MILD DISABILITIES TEACHER: MICAHEL 11/24/181839 RPT#: [id number] DC DATE: STATUS: ADM IN [facility] [address] [place] [address] END OF REPORT
--- NOTE | 2018-11-24 18:47 | MORECARE ---
CASE MANAGEMENT DISCHARGE SUMMARY PATIENT: GRIS HASTINGS UNIT: [id number] ADM DATE: 11/22/18 AGE: 68 : 50 SEX: F ROOM/BED: D.2231 AUTHOR: FARRUKH,DOC PHYSICIAN: REFERRING PHYSICIAN: TONI MORALES MD DATE OF SERVICE: 11/24/18 Discharge Plan Patient Name: GRIS HASTINGS Facility: [facility]:[place] : 1950 Planned Disposition: Home Anticipated Discharge Date: Discharge Date: Expected LOS: Initial Reviewer: [email or web address] Initial Review Date: 11/24/2018 Generated: 11/24/18 7:47 pm Comments DCP- Discharge Planning Updated by [email or web address]: Penelope Atkins on 11/24/18 5:[address] Patient Name: GRIS HASTINGS Admission Status: Elective Accout number: [id number] Admission Date: 11-22-2018 : 1950 Admission Diagnosis:UNILATERAL PRIMARY OSTEOARTHRITIS, RIGHT KNEE Attending: TONI MORALES Current LOS: 2 Anticipated DC Date: Planned Disposition: Home Primary Insurance: MEDICARE A & B Discharge Planning Comments: CM met with patient to complete initial dc planning assessment. CM educated patient on the CM role and verbal consent given by patient to complete assessment. Patient lives at home alone where she is independent with her care. Patient states that her friend is coming to stay with her for awhile once discharged. At discharge patient plans to return home and feels this is a safe discharge. CM discussed availability of home health, rehab services, and medical equipment. Her friend will drive her home upon discharge. Patient stated that she has CPM, BSC, and walker. Patient denied known discharge needs at this time. Patient states that she will have her physical therapy at [place] and she will have transportation there. CM will continue to follow and will assist as needed with dc plans/needs. Outreach And Education Social Worker: Penelope Atkins DCPIA - Discharge Planning Initial Assessment Updated by [email or web address]: Penelope Atkins on 11/24/18 6:41 pm * Is the patient Alert and Oriented? Yes * How many steps to enter\exit or inside your home? * PCP SAMARIA MCGRATH * Pharmacy [facility] * Preadmission Environment Home Alone * ADLs Independent * Equipment Bedside Commode * Other Equipment BSC, WALKER, CPM * List name and contact numbers for known caregivers / representatives who currently or will assist patient after discharge: JENNI CARBAJAL [facility] - [phone] * Verbal permission to speak to the caregivers and representatives has been obtained from the patient. N/A * Community resources currently utilized None * Additional services required to return to the preadmission environment? No * Can the patient safely return to the preadmission environment? Yes * Has this patient been hospitalized within the prior 30 days at any hospital? No Last DP export: 11/24/18 5:41 p Patient Name: GRIS HASTINGS Page 08642 at 1847 All edits/amendments must be made on the electronic document DICTATION DATE: 11/24/181846 POWER PLANT MECHANIC: MICHAEL 11/24/181846 RPT#: [id number] DC DATE: STATUS: ADM IN [facility] [address] [place] [address] END OF REPORT
--- NOTE | 2018-11-24 22:43 | NUR ---
AWAKE ALERT.NO COMPLAINTS VOICED.LINDA WRAP DRESSING TO RIGHT KNEE WITHOUT DRAINAGE NOTED.IV TO RAC INTACT WITHOUT REDNESS OR EDEMA NOTED. CL IN REACH
[2018-11-25 04:00] VITALS: BP 99/44
[2018-11-25 06:20] LABS: BASOPHILS 0 % (0-2); EOSINOPHILS 0 % (0-7); HEMOGLOBIN 9.2 g/dL (12-16); IMMATURE GRANULOCYTES 0.2 % (0-5); LYMPHOCYTES 14.9 % (15-50); MCH 27.6 pg (26.0-34.0); MCHC 31.7 g/dL (31.0-37.0); MCV 87.1 fL (80.0-100.0); MEAN PLATELET VOLUME 10.8 fL (7.4-10.4); MONOCYTES 10.1 % (2-11); NEUTROPHILS 74.8 % (40-80); RBC 3.33 10x6/uL (4.00-5.40); RDW 14.6 % (11.5-14.5); WBC 4.8 10x3/uL (4.8-10.8)
[2018-11-25 06:28] LABS: PLATELET COUNT 141 10x3/uL (130-400)
[2018-11-25 06:43] LABS: ALBUMIN 2.4 g/dL (3.4-5.0); ANION GAP 15.7 mmol/L (8-16); BILIRUBIN - DIRECT 0.15 mg/dL (0.00-0.30); BILIRUBIN - INDIRECT 0.34 mg/dL (0.00-1.00); BILIRUBIN - TOTAL 0.49 mg/dL (0.2-1.3); CALCIUM 7.7 mg/dL (8.5-10.1); CARBON DIOXIDE 24.4 mmol/L (21.0-32.0); PHOSPHOROUS 4.3 mg/dL (2.5-4.9); POTASSIUM - SERUM 4.1 mmol/L (3.5-5.1); PROTEIN - SERUM 5.1 g/dL (6.4-8.2); VANCOMYCIN - RANDOM 15.5 ug/mL (10.0-20.0)
[2018-11-25 06:44] LABS: CREATININE - SERUM 2.3 mg/dL (0.6-1.3)
--- NOTE | 2018-11-25 07:00 | NUR ---
PT IS RESTING IN BED WITH EYES OPEN. RESPIRATIONS ARE EVEN AND UNLABORED. PT IS AAO X 4. PT DENIES PRESENCE OF PAIN/N/V/TINGLING/NUMBNESS AT THIS TIME. CPM IS ON RIGHT LOWER EXTREMITY. SCDS TO LEFT LOWER EXTREMITY. DRESSING TO RIGHT KNEE IS CDI. BED IS IN THE LOWEST POSITION. CALL LIGHT AND BEDSIDE TABLE ARE WITHIN REACH. SIDE RAILS X 2. EVELINA ALARM IS ON AND WORKING. PT DENIES FURTHER NEEDS. WILL CONT TO MONITOR.
[2018-11-25 09:13] VITALS: BP 116/49
[2018-11-25 12:15] VITALS: BP 136/76
--- NOTE | 2018-11-25 14:50 | MORECARE ---
CASE MANAGEMENT DISCHARGE SUMMARY PATIENT: GRIS HASTINGS UNIT: [id number] ADM DATE: 11/22/18 AGE: 68 : 50 SEX: F ROOM/BED: D.2231 AUTHOR: FARRUKH,DOC PHYSICIAN: REFERRING PHYSICIAN: TONI MORALES MD DATE OF SERVICE: 11/25/18 Discharge Plan Patient Name: GRIS HASTINGS Facility: [facility]:[place] : 1950 Planned Disposition: Home Anticipated Discharge Date: Discharge Date: Expected LOS: Initial Reviewer: [email or web address] Initial Review Date: 11/24/2018 Generated: 11/25/18 3:49 pm Comments DCP- Discharge Planning Updated by [id number]: Penelope Atkins on 11/24/18 5:[address] Patient Name: GRIS HASTINGS Admission Status: Elective Accout number: [id number] Admission Date: 11-22-2018 : 1950 Admission Diagnosis:UNILATERAL PRIMARY OSTEOARTHRITIS, RIGHT KNEE Attending: TONI MORALES Current LOS: 2 Anticipated DC Date: Planned Disposition: Home Primary Insurance: MEDICARE A & B Discharge Planning Comments: CM met with patient to complete initial dc planning assessment. CM educated patient on the CM role and verbal consent given by patient to complete assessment. Patient lives at home alone where she is independent with her care. Patient states that her friend is coming to stay with her for awhile once discharged. At discharge patient plans to return home and feels this is a safe discharge. CM discussed availability of home health, rehab services, and medical equipment. Her friend will drive her home upon discharge. Patient stated that she has CPM, BSC, and walker. Patient denied known discharge needs at this time. Patient states that she will have her physical therapy at [place] and she will have transportation there. CM will continue to follow and will assist as needed with dc plans/needs. Conveyor Technician: Penelope Atkins DCPIA - Discharge Planning Initial Assessment Updated by [email or web address]: Penelope Atkins on 11/24/18 6:41 pm * Is the patient Alert and Oriented? Yes * How many steps to enter\exit or inside your home? * PCP SAMARIA MCGRATH * Pharmacy [facility] * Preadmission Environment Home Alone * ADLs Independent * Equipment Bedside Commode * Other Equipment BSC, WALKER, CPM * List name and contact numbers for known caregivers / representatives who currently or will assist patient after discharge: JENNI CARBAJAL [facility] - [phone] * Verbal permission to speak to the caregivers and representatives has been obtained from the patient. N/A * Community resources currently utilized None * Additional services required to return to the preadmission environment? No * Can the patient safely return to the preadmission environment? Yes * Has this patient been hospitalized within the prior 30 days at any hospital? No External Providers External Provider: OTHER-OTHER Next Contact Date: Service Request Date: Service Type: Resolution: Reviewer: Comments: Last DP export: 11/24/18 5:47 p Patient Name: GRIS HASTINGS Page 78756 at 1450 All edits/amendments must be made on the electronic document DICTATION DATE: 11/25/181448 REHABILITATION SERVICES DIRECTOR: MICHAEL 11/25/181448 RPT#: [id number] DC DATE: STATUS: ADM IN [facility] [address] [place] [address] END OF REPORT
--- NOTE | 2018-11-25 15:14 | MORECARE ---
CASE MANAGEMENT DISCHARGE SUMMARY PATIENT: GRIS HASTINGS UNIT: [id number] ADM DATE: 11/22/18 AGE: 68 : 50 SEX: F ROOM/BED: D.2231 AUTHOR: FARRUKH,DOC PHYSICIAN: REFERRING PHYSICIAN: TONI MORALES MD DATE OF SERVICE: 11/25/18 Discharge Plan Patient Name: GRIS HASTINGS Facility: [facility]:[place] : 1950 Planned Disposition: Home Anticipated Discharge Date: Discharge Date: Expected LOS: Initial Reviewer: [email or web address] Initial Review Date: 11/24/2018 Generated: 11/25/18 4:13 pm Comments DCP- Discharge Planning Updated by [email or web address]: Viktoria Bloom on 11/25/18 2:[address] Met with patient to discuss outpatient rehab. She would like it at [facility]. [facility] and spoke to Chelsy at [phone] and faxed order and clinical to [phone]. Her first visit is Nov.29 at 1:15. She states that her family will drive her to and from her OP PT. CM will continue to follow and assist with discharge planning/needs. DCP- Discharge Planning Updated by [email or web address]: Penelope Atkins on 11/24/18 5:[address] Patient Name: GRIS HASTINGS Admission Status: Elective Accout number: [id number] Admission Date: 11-22-2018 : 1950 Admission Diagnosis:UNILATERAL PRIMARY OSTEOARTHRITIS, RIGHT KNEE Attending: TONI MORALES Current LOS: 2 Anticipated DC Date: Planned Disposition: Home Primary Insurance: MEDICARE A & B Discharge Planning Comments: CM met with patient to complete initial dc planning assessment. CM educated patient on the CM role and verbal consent given by patient to complete assessment. Patient lives at home alone where she is independent with her care. Patient states that her friend is coming to stay with her for awhile once discharged. At discharge patient plans to return home and feels this is a safe discharge. CM discussed availability of home health, rehab services, and medical equipment. Her friend will drive her home upon discharge. Patient stated that she has CPM, BSC, and walker. Patient denied known discharge needs at this time. Patient states that she will have her physical therapy at [place] and she will have transportation there. CM will continue to follow and will assist as needed with dc plans/needs. Medical Field Representative: Penelope Atkins DCPIA - Discharge Planning Initial Assessment Updated by [email or web address]: Penelope Milly on 11/24/18 6:41 pm * Is the patient Alert and Oriented? Yes * How many steps to enter\exit or inside your home? * PCP SAMARIA MCGRATH * Pharmacy [facility] * Preadmission Environment Home Alone * ADLs Independent * Equipment Bedside Commode * Other Equipment BSC, WALKER, CPM * List name and contact numbers for known caregivers / representatives who currently or will assist patient after discharge: JENNI CARBAJAL - [place] - [phone] * Verbal permission to speak to the caregivers and representatives has been obtained from the patient. N/A * Community resources currently utilized None * Additional services required to return to the preadmission environment? No * Can the patient safely return to the preadmission environment? Yes * Has this patient been hospitalized within the prior 30 days at any hospital? No Coverage Notice Reviewer: [email or web address] Parviz Bloom Notice Issued Date-Time: 11/25/2018 15:08 Notice Type: IM Discharge Notice Notice Delivered To: Patient Relationship to Patient: Self Process Supervisor Name: Delivery Method: HAND - Hand Delivered Mariana Days: Prior Verbal Notification: Recipient Understood Notice: Yes Recipient Signature: Yes Med Rec Note Co-signed by Attending: Coverage Notice Comment: IMM explained, signed, given, copy placed in MR Last DP export: 11/25/18 1:50 p Patient Name: GRIS HASTINGS Page 12169 at 1514 All edits/amendments must be made on the electronic document DICTATION DATE: 11/25/181512 DENTAL INTERN: MICHAEL 11/25/181512 RPT#: [id number] DC DATE: STATUS: ADM IN [facility] [address] [place] [address] END OF REPORT
[2018-11-25 17:07] VITALS: BP 125/34
[2018-11-25 20:00] VITALS: BP 145/45
--- NOTE | 2018-11-25 20:15 | NUR ---
AWAKE,ALERT.WATCHING TV. NO COMPLAITNS VOICED. RESP EVEN AND UNALBORED. NO DISTRESS NOTED. LINDA WRAP DRESSING INTACT TO RIGHT KNEE WITHOUT DRAINAGE NOTED. CPM IN USE AT THIS TIME. CL IN REACH
[2018-11-26] VITALS: BP 168/44
--- NOTE | 2018-11-26 01:09 | NUR ---
I have reviewed this patient and I concur with the Shift Assessment completed by the Licensed Practical Nurse today this shift.
[2018-11-26 06:26] VITALS: BP 147/60
[2018-11-26 07:24] LABS: BASOPHILS 0 % (0-2); EOSINOPHILS 0 % (0-7); HEMATOCRIT 28.7 % (36.0-48.0); HEMOGLOBIN 9.1 g/dL (12-16); LYMPHOCYTES 17.3 % (15-50); MCH 27.2 pg (26.0-34.0); MCHC 31.7 g/dL (31.0-37.0); MCV 85.9 fL (80.0-100.0); MEAN PLATELET VOLUME 10.4 fL (7.4-10.4); MONOCYTES 14.4 % (2-11); NEUTROPHILS 68.3 % (40-80); PLATELET COUNT 156 10x3/uL (130-400); RBC 3.34 10x6/uL (4.00-5.40); RDW 14.2 % (11.5-14.5)
[2018-11-26 07:28] LABS: WBC 3.5 10x3/uL (4.8-10.8)
[2018-11-26 07:43] LABS: ALBUMIN 2.3 g/dL (3.4-5.0); ANION GAP 13.3 mmol/L (8-16); BILIRUBIN - TOTAL 0.53 mg/dL (0.2-1.3); CALCIUM 7.9 mg/dL (8.5-10.1); CARBON DIOXIDE 26.3 mmol/L (21.0-32.0); CREATININE - SERUM 1.6 mg/dL (0.6-1.3); PHOSPHOROUS 3.7 mg/dL (2.5-4.9); POTASSIUM - SERUM 3.6 mmol/L (3.5-5.1)
--- NOTE | 2018-11-26 08:00 | NUR ---
ASSESSMENT PER FLOW SHEET. PT IS WITHOUT DISTRESS.MONITOR FOR NEEDS.
[2018-11-26] MEDS ORDERED: ELIQUIS2.5 MG PO (08:38)
[2018-11-26] MEDS ORDERED: HYDROCODON-ACE1 EA10 PO (08:38)
[2018-11-26 08:44] VITALS: BP 143/62
[2018-11-26] MEDS ORDERED: LISINOPRIL20 MG PO (09:13)
--- NOTE | 2018-11-26 09:27 | MORECARE ---
CASE MANAGEMENT DISCHARGE SUMMARY PATIENT: GRIS HASTINGS UNIT: [id number] ADM DATE: 11/22/18 AGE: 68 : 50 SEX: F ROOM/BED: D.2231 AUTHOR: SINDI CHADWICK PHYSICIAN: REFERRING PHYSICIAN: TONI MORALES MD DATE OF SERVICE: 11/26/18 Discharge Plan Patient Name: GRIS HASTINGS Facility: [facility]:[place] : 1950 Planned Disposition: Home Anticipated Discharge Date: Discharge Date: Expected LOS: Initial Reviewer: [email or web address] Initial Review Date: 11/24/2018 Generated: 11/26/18 10:27 am Comments DCP- Discharge Planning Updated by [email or web address]: Viktoria Frysatish on 11/26/18 8:[address] Patient Name: GRIS HASTINGS Encounter No: [id number] : 1950 Primary Insurance: MEDICARE A & B Anticipated DC Date: Planned Disposition: Home External Planned Provider: : DCP follow-up note: Patient and family in agreement with discharge plan. No changes to plan. She has her first OP PT visit at [facility] on November 29 at 1:15. I have given her this time, date and phone number and she agrees with plan. Case management will follow and assist as needed. Viktoria Bloom DCP- Discharge Planning Updated by [email or web address]: Viktoria Bloom on 11/25/18 2:[address] Met with patient to discuss outpatient rehab. She would like it at [facility] by the hospital. I called [facility] and spoke to Chelsy at [phone] and faxed order and clinical to [phone]. Her first visit is Nov.29 at 1:15. She states that her family will drive her to and from her OP PT. CM will continue to follow and assist with discharge planning/needs. DCP- Discharge Planning Updated by [email or web address]: Penelope Atkins on 11/24/18 5:[address] Patient Name: GRIS HASTINGS Admission Status: Elective Accout number: [id number] Admission Date: 11-22-2018 : 1950 Admission Diagnosis:UNILATERAL PRIMARY OSTEOARTHRITIS, RIGHT KNEE Attending: TONI MORALES Current LOS: 2 Anticipated DC Date: Planned Disposition: Home Primary Insurance: MEDICARE A & B Discharge Planning Comments: CM met with patient to complete initial dc planning assessment. CM educated patient on the CM role and verbal consent given by patient to complete assessment. Patient lives at home alone where she is independent with her care. Patient states that her friend is coming to stay with her for awhile once discharged. At discharge patient plans to return home and feels this is a safe discharge. CM discussed availability of home health, rehab services, and medical equipment. Her friend will drive her home upon discharge. Patient stated that she has CPM, BSC, and walker. Patient denied known discharge needs at this time. Patient states that she will have her physical therapy at [place] and she will have transportation there. CM will continue to follow and will assist as needed with dc plans/needs. Borderer: Penelope Atkins DCPIA - Discharge Planning Initial Assessment Updated by [email or web address]: Penelope Atkins on 11/24/18 6:41 pm * Is the patient Alert and Oriented? Yes * How many steps to enter\exit or inside your home? * PCP SAMARIA MCGRATH * Pharmacy [facility] * Preadmission Environment Home Alone * ADLs Independent * Equipment Bedside Commode * Other Equipment BSC, WALKER, CPM * List name and contact numbers for known caregivers / representatives who currently or will assist patient after discharge: JENNI CARBAJAL - FRIEND - [phone] * Verbal permission to speak to the caregivers and representatives has been obtained from the patient. N/A * Community resources currently utilized None * Additional services required to return to the preadmission environment? No * Can the patient safely return to the preadmission environment? Yes * Has this patient been hospitalized within the prior 30 days at any hospital? No Coverage Notice Reviewer: [id number] Parviz Bloom Notice Issued Date-Time: 11/25/2018 15:08 Notice Type: IM Discharge Notice Notice Delivered To: Patient Relationship to Patient: Self Operators School Manager Name: Delivery Method: HAND - Hand Delivered Mariana Days: Prior Verbal Notification: Recipient Understood Notice: Yes Recipient Signature: Yes Med Rec Note Co-signed by Attending: Coverage Notice Comment: IMM explained, signed, given, copy placed in MR Last DP export: 11/25/18 2:14 p Patient Name: GRIS HASTINGS Page 63452 at 0927 All edits/amendments must be made on the electronic document DICTATION DATE: 11/26/18926 OXIDATION OPERATOR: MICHAEL 11/26/18926 RPT#: [id number] DC DATE: STATUS: ADM IN [facility] [address] [place] [address] END OF REPORT
--- NOTE | 2018-11-26 11:00 | NUR ---
DRESSING CHANGED ORDERED.
--- NOTE | 2018-11-26 13:19 | NUR ---
IV DCD WITH CATH TIP INTACT.DISCHARGE INSTRUCTIONS,STATES UNDERSTANDING.
--- NOTE | 2018-11-26 14:00 | NUR ---
LEFT UNIT VIA WHEELCHAIR FOR TRANSPORT HOME
--- NOTE | 2018-11-30 07:06 | MORECARE ---
CASE MANAGEMENT DISCHARGE SUMMARY PATIENT: GRIS HASTINGS UNIT: [id number] ADM DATE: 11/22/18 AGE: 68 : 50 SEX: F ROOM/BED: D.2231 AUTHOR: SINDI CHADWICK PHYSICIAN: REFERRING PHYSICIAN: TONI MORALES MD DATE OF SERVICE: 11/30/18 Discharge Plan Patient Name: GRIS HASTINGS Facility: [facility]:[place] : 1950 Planned Disposition: Home Anticipated Discharge Date: Discharge Date: 11/26/2018 Expected LOS: 0 Initial Reviewer: [email or web address] Initial Review Date: 11/24/2018 Generated: 11/30/18 8:06 am Comments DCP- Discharge Planning Updated by [email or web address]: Viktoria Wolf on 11/26/18 8:[address] Patient Name: GRIS HASTINGS Encounter No: [id number] : 1950 Primary Insurance: MEDICARE A & B Anticipated DC Date: Planned Disposition: Home External Planned Provider: : DCP follow-up note: Patient and family in agreement with discharge plan. No changes to plan. She has her first OP PT visit at [facility] on November 29 at 1:15. I have given her this time, date and phone number and she agrees with plan. Case management will follow and assist as needed. Viktoria Bloom DCP- Discharge Planning Updated by [id number]: Viktoria Bloom on 11/25/18 2:[address] Met with patient to discuss outpatient rehab. She would like it at [facility] by the hospital. I called [facility] and spoke to Chelsy at [phone] and faxed order and clinical to [phone]. Her first visit is Nov.29 at 1:15. She states that her family will drive her to and from her OP PT. CM will continue to follow and assist with discharge planning/needs. DCP- Discharge Planning Updated by [id number]: Penelope Atkins on 11/24/18 5:[address] Patient Name: GRIS HASTINGS Admission Status: Elective Accout number: [id number] Admission Date: 11-22-2018 : 1950 Admission Diagnosis:UNILATERAL PRIMARY OSTEOARTHRITIS, RIGHT KNEE Attending: TONI MORALES Current LOS: 2 Anticipated DC Date: Planned Disposition: Home Primary Insurance: MEDICARE A & B Discharge Planning Comments: CM met with patient to complete initial dc planning assessment. CM educated patient on the CM role and verbal consent given by patient to complete assessment. Patient lives at home alone where she is independent with her care. Patient states that her friend is coming to stay with her for awhile once discharged. At discharge patient plans to return home and feels this is a safe discharge. CM discussed availability of home health, rehab services, and medical equipment. Her friend will drive her home upon discharge. Patient stated that she has CPM, BSC, and walker. Patient denied known discharge needs at this time. Patient states that she will have her physical therapy at [place] and she will have transportation there. CM will continue to follow and will assist as needed with dc plans/needs. Housekeeping Room Attendant: Penelope Atkins DCPIA - Discharge Planning Initial Assessment Updated by [email or web address]: Penelope Atkins on 11/24/18 6:41 pm * Is the patient Alert and Oriented? Yes * How many steps to enter\exit or inside your home? * PCP SAMARIA MCGRATH * Pharmacy [facility] * Preadmission Environment Home Alone * ADLs Independent * Equipment Bedside Commode * Other Equipment BSC, WALKER, CPM * List name and contact numbers for known caregivers / representatives who currently or will assist patient after discharge: JENNI CARBAJAL - [place] - [phone] * Verbal permission to speak to the caregivers and representatives has been obtained from the patient. N/A * Community resources currently utilized None * Additional services required to return to the preadmission environment? No * Can the patient safely return to the preadmission environment? Yes * Has this patient been hospitalized within the prior 30 days at any hospital? No Coverage Notice Reviewer: [email or web address] Parviz Bloom Notice Issued Date-Time: 11/25/2018 15:08 Notice Type: IM Discharge Notice Notice Delivered To: Patient Relationship to Patient: Self Intercell Connector Placer Name: Delivery Method: HAND - Hand Delivered Mariana Days: Prior Verbal Notification: Recipient Understood Notice: Yes Recipient Signature: Yes Med Rec Note Co-signed by Attending: Coverage Notice Comment: IMM explained, signed, given, copy placed in MR Last DP export: 11/26/18 8:27 a Patient Name: GRIS HASTINGS Page 42672 at 0706 All edits/amendments must be made on the electronic document DICTATION DATE: 11/30/18705 VIOLIN RESTORER: MICHAEL 11/30/18705 RPT#: [id number] DC DATE:11/26/18 STATUS: DIS IN [facility] [address] [place] [address] END OF REPORT
--- NOTE | 2018-12-02 13:30 | CN ---
PATIENT NAME:GRIS HASTINGS MEDICAL RECORD: [id number] : 50 LOCATION:D[id number] ADMIT DATE: 11/22/18 ACCOUNT: [id number] CONSULTING PHYSICIAN: BERNY HERMOSILLO MD REFERRING PHYSICIAN: TONI MORALES MD DATE OF CONSULTATION: 11/24/2018 CARDIOLOGY CONSULTATION DIAGNOSES: 1. Unresponsiveness. 2. Hypertension. 3. Status post total knee arthroplasty. HISTORY OF PRESENT ILLNESS: Mrs. Hastings underwent surgery and became unresponsive. It appears that it was secondary to the pain medication afterwards. From a cardiac standpoint, she had an echocardiogram. This was absolutely normal with a normal ejection fraction, no valvular heart disease, normal pulmonary pressures. She has a history of hypertension, for which she is on lisinopril. Her systolic blood pressure has been running approximately in the 120-130 range, heart rate has been in the 70s. She has had no dysrhythmias. PHYSICAL EXAMINATION: CONSTITUTIONAL/GENERAL APPEARANCE: Well nourished, well developed, appears stated age. EYES: Lids and conjunctivae noninjected. No discharge. No pallor. ENT: Lips within normal limit. No cyanosis. No pallor. NECK: Carotid arteries, bilateral normal upstroke. No bruits. No thrills. No jugular venous pressure or distention. CERVICAL LYMPH NODES: Nontender. Nonenlarged. THYROID: Not enlarged. No nodules. CARDIOVASCULAR: Precordial exam, nondisplaced. No heaves or pericardial thrills. Rate and rhythm, regular. Heart sounds, normal S1, normal S2. No S3, no gallop, no rub. Systolic murmur, not heard. Diastolic murmur, not heard. RESPIRATORY: Respiratory effort, unlabored. Normal curvature. No thoracic deformity. No chest wall tenderness. Percussion, resonant. Auscultation, clear. No wheezes, no rales, no rhonchi. ABDOMEN: Soft, nondistended, nontender. No abdominal pain, no vomiting and normal appetite. MUSCULOSKELETAL: No joint tenderness, normal gait, normal tone. SKIN: Warm and dry. OVERALL IMPRESSION: Unresponsiveness secondary to pain medication postop. This is not cardiac in nature. No other cardiac workup needs to be ascertained. TRANSINT:[id number] Voice Confirmation ID: [id number] DOCUMENT ID: [id number] CONSULT REPORT [id number] GRIS HASTINGS JEFFREY MD at 1330 CC: [id number] DICTATION DATE: 11/24/18 1110 ELEMENTARY LIBRARIAN: 11/24/18 1211 DIS IN 11/26/18 [facility] [address] [place] [address]
--- NOTE | 2018-12-02 13:30 | EC ---
PATIENT:GRIS HASTINGS DATE OF SERVICE: 11/22/18 SEX: F MEDICAL RECORD: [id number] DATE OF : 50 LOCATION:[facility] AGE OF PATIENT: 68 ADMISSION DATE: 11/22/18 REFERRING PHYSICIAN: INTERPRETING PHYSICIAN: BERNY MUNIZ MD ECHOCARDIOGRAM REPORT ECHO CHARGES 4 ECHO COMPLETE Date: 11/23/18 CLINICAL DIAGNOSIS: POST OP KNEE, BLURRED VISION, ASSESS FOR CLOTS ECHOCARDIOGRAPHIC MEASUREMENTS (adult normal given) AC root (d.<3.7cm) 3.1 cm LV Septum d (<1.2 cm> 1.5 cm Valve Excursion 1.6 cm LV Septum (systole) 1.7 cm Left Atria (s.<4.0cm> 4.1 cm LVPW d(<1.2cm) 1.6 cm RV (d.<2.3cm) 4.4 cm LVPW (sytole) 1.9 cm LV diastole(<5.6CM) 4.1 cm MV E-F(>70mm/sec) cm LV systole 1.7 cm LVOT Diameter 1.9 cm MV exc.(>10mm) 1.6 cm Est.ejection fraction (50-75%) % DOPPLER: LVIT cm/sec A 91.0 cm/sec E 102 cm/sec LA cm/sec RVSP 33 mmHg LVOT 126 cm/sec AOP1/2T m/s Asc. 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 Muniz TAPE# PACS Pericardial Effusion N DATE OF SERVICE: PROCEDURE: Echocardiogram. FINDINGS: 1. Left ventricular chamber size is within normal limits. Left ventricular systolic function is normal. Overall ejection fraction estimated at 65%. 2. Left atrium is enlarged at 4.1 cm. Right atrium and right ventricular chamber sizes are as well mildly dilated. 3. Valvular structures have normal structure and motion. ECHOCARDIOGRAM REPORT [id number] GRIS HASTINGS 4. Doppler interrogation reveals mild tricuspid regurgitation, no other valvular insufficiency or stenosis. Pulmonary systolic pressure is estimated 33 mmHg. 5. No evidence of pericardial effusion or left ventricular thrombus. TRANSINT:[id number] Voice Confirmation ID: [id number] DOCUMENT ID: [id number] BERNY MUNIZ MD at 1330 CC: [id number] DICTATION DATE: 11/23/18 1805 SUBSTATION OPERATOR CONVERSION: 11/24/18 0153 DIS IN 11/26/18 [place] [id number] [place] [id number]
== END 2018-11-26 14:00 | disposition home or self-care (01) | DRG 469 ==
LOC: D.ICU 11-22 06:50 → D.MS 11-22 06:50 → D.SDCHOLD 11-22 06:50 → D.MS 11-22 12:57 → D.ICU 11-23 15:29 → D.MS 11-24 14:44
PROVIDERS: Family Medicine; Internal Medicine Nephrology; ADMIT Orthopaedic Surgery; ATTEND Orthopaedic Surgery
PROC: 0SRC0JZ Replacement of Right Knee Joint with Synthetic Substitute, Open Approach (ICD-10-PCS; principal; 2018-11-22 08:45)
DX: M17.11 Unilateral primary osteoarthritis, right knee (principal); N17.0 Acute kidney failure with tubular necrosis; G93.41 Metabolic encephalopathy; D62 Acute posthemorrhagic anemia; M19.90 Unspecified osteoarthritis, unspecified site; M21.061 Valgus deformity, not elsewhere classified, right knee; I10 Essential (primary) hypertension; G25.81 Restless legs syndrome; K21.9 Gastro-esophageal reflux disease without esophagitis; E66.9 Obesity, unspecified; I95.81 Postprocedural hypotension